=== PATIENT | male | born 1950 | race Caucasian/White ===

== ENCOUNTER 2016-07-03 08:52 | Outpatient (CLI) | payer MEDICAID, OTHER ==
[2015-09-18 21:54] VITALS: BP 121/79
== END 2016-07-03 08:53 ==
LOC: RT 08:52
PROVIDERS: ATTEND Nurse Practitioner Family
DX: R09.02 Hypoxemia (principal)
CPT/HCPCS: 94761

== ENCOUNTER 2017-05-05 18:16 | Emergency (ER) | payer MEDICARE, OTHER ==
[2017-05-05 18:42] VITALS: BP 124/80
[2017-05-05] MEDS ORDERED: methylPREDNISolone ACETATE 80 MG/ML VIAL IM ONE (19:25)
[2017-05-05] MEDS ORDERED: IPRATROPIUM/ALBUTEROL SULFATE 3 ML AMPUL.NEB NEB STA (19:25)
--- NOTE | 2017-05-05 19:38 | ED Physician Documentation ---
General Adult - HISTORIAN Historian: patient - HPI Stated Complaint: right ankle pain, cough Chief Complaint: General Adult Further Comments: yes (66 year old male patient presents with complaint of cough , wheezing and right ankle pain. Patient reports falling down 3 stairs this afternoon. C/O right lateral ankle pain, able to bear weight.) - ROS CONST: no problems EYES/ENT: none CVS/RESP: shortness of breath, cough GI/: none MS/SKIN/LYMPH: ankle swelling (left) NEURO/PSYCH: denies: headache, fainting, dizziness, tingling, numbness, difficulty walking, difficulty with speech, anxiety, depression, other - PAST HX Past History: COPD Other History: other (HLD, HTN) Allergies/Adverse Reactions: Allergies Allergy/AdvReac Type Severity Reaction Status Date / Time Penicillins Allergy Severe Throat Verified 05/05/17 18:44 Swelling Home Medications: Ambulatory Orders Medication Instructions Recorded Metoprolol Succinate [Toprol Xl] 50 mg PO DAILY 04/16/13 Aspirin EC [Ecotrin] 1 tab PO D 09/18/15 Atorvastatin Calcium [Lipitor] 1 tab PO D 09/18/15 Albuterol Sulfate [Proair HFA] 1 puff INH QID 05/05/17 Budesonide/Formoterol Fumarate 1 puff IH BID 05/05/17 [Symbicort 160-4.5 Mcg Inhaler] - SOCIAL HX Smoking History: cigarettes - FAMILY HX Family History: No - VITAL SIGNS Vital Signs: Vital Signs Temp Pulse Resp BP Pulse Ox 99.9 F H 112 H 21 124/80 96 05/05/17 18:39 05/05/17 18:39 05/05/17 18:39 05/05/17 18:39 05/05/17 18:39 - REVIEWED ASSESSMENTS Nursing Assessment Reviewed: Yes Vitals Reviewed: Yes Progress - Progress Progress: Duoneb given in ER, Sat 98% on RA; depo medrol IM given. ED Results Lab/Radiology - Radiology Radiology Impressions: Three views of the right ankle CLINICAL HISTORY: Twisting injury. Pain and swelling. FINDINGS: Examination of the right ankle in AP, lateral and oblique views fails to demonstrate evidence of fracture or dislocation. The ankle mortise is anatomic. Calcaneal spurs are seen on the lateral view. IMPRESSION: Calcaneal spurs. No fracture. 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 by: Jeremy Villa - Orders Orders: ED Orders Category Date Time Status RIGHT ANKLE [ANKLE 3 VIEWS OR MORE] [RAD] Stat Exams 05/05/17 Ordered INFLUENZA A&B Stat Lab 05/05/17 18:39 Ordered Ipratropium/Albuterol Sulfate [Duoneb] Med 05/05/17 19:25 Discontinued 3 ml NEB STAT STA methylPREDNISolone ACETATE [Depo-Medrol] Med 05/05/17 19:25 Discontinued 80 mg IM NOW ONE General Adult Physical Exam - PHYSICAL EXAM GENERAL APPEARANCE: mild distress EENT: eye inspection normal, CINDY RESPIRATORY: no resp distress, chest non-tender, wheezes (expiratory) CVS: reg rate & rhythm, heart sounds normal, equal pulses, no murmur, no gallop , PMI nml, no JVD, no friction rub, 24 ABDOMEN: soft, no organomegaly, normal bowel sounds, no abdominal bruit, no distension SKIN: normal color, warm/dry, NR, INT, PAL, DR EXTREMITIES: normal range of motion, no evidence of injury, no edema, tenderness (right ankle), other (right lateral ankle with moderate edema; no ecchymosis) NEURO: oriented X3, CN's nml as tested, motor nml, sensation nml, mood/affect nml Discharge Clincal Impression: COPD with exacerbation Referrals: Kalpana Shin, CHARLIEN [Primary Care Provider] - 3 Days Additional Instructions: clinical support associate your prescriptions and start them tomorrow. Increase your nebulizer use to every 2-4 hours as needed for cough and wheezing Ankle sprain: Rest Ice elevation Jimenez wrap as needed Condition: Stable Disposition: 01 HOME, SELF-CARE Decision to Admit: NO Decision Time: 19:37
--- NOTE | 2017-05-06 06:00 | Diagnostic Imaging Report ---
[facility] [address] [facility].[address] [address] Report Submission Date: May 05, 2017 7:18:34 PM SENIOR INFORMATION DEVELOPER Patient Study Name: CATHI WRAY Date: May 05, 2017 7:09:03 PM SENIOR INFORMATION DEVELOPER Modality Type: CR Gender: M Description: LOWER EXTREMITY : 52 Institution: [facility] Physician: MIGNON CORRAL (RANGE MANAGER) - ER Three views of the right ankle CLINICAL HISTORY: Twisting injury. Pain and swelling. FINDINGS: Examination of the right ankle in AP, lateral and oblique views fails to demonstrate evidence of fracture or dislocation. The ankle mortise is anatomic. Calcaneal spurs are seen on the lateral view. IMPRESSION: Calcaneal spurs. No fracture. Electronically signed on May 05, 2017 7:18:34 PM SENIOR INFORMATION DEVELOPER by: Jeremy CARDONA
== END 2017-05-05 19:45 | disposition home or self-care (01) ==
LOC: ED 18:16
DX: J44.1 Chronic obstructive pulmonary disease with (acute) exacerbation (principal); M25.571 Pain in right ankle and joints of right foot
CPT/HCPCS: 73610; 87400; 94640; 96372; 99283; J1040

== ENCOUNTER 2017-06-18 16:33 | Emergency (ER) | payer MEDICARE ==
--- NOTE | 2017-06-18 16:53 | ED Physician Documentation ---
Critical Care - HISTORIAN Historian: patient - HPI Chief Complaint: Chest Pain Additional Information: 7yo white male who developed some chest pain in the left anterior chest that lasted about 10 minutes about one week ago. Since that time has been having some chest discomfort that lasts for seconds. Today felt weak and lightheaded. Has been cough some, productive of some yellow phlegm, no cough. Has been having some SOB and wheezing. More SOB over the last day. No feet or leg swelling. Has a history of acid reflux. Has had [address] about 6 years ago[address] Last saw Dr Weir about 1 year ago. - PAST HX Allergies/Adverse Reactions: Allergies Allergy/AdvReac Type Severity Reaction Status Date / Time Penicillins Allergy Severe Throat Verified 05/05/17 18:44 Swelling Home Medications: Ambulatory Orders Medication Instructions Recorded Metoprolol Succinate [Toprol Xl] 50 mg PO DAILY 04/16/13 Aspirin EC [Ecotrin] 1 tab PO D 09/18/15 Atorvastatin Calcium [Lipitor] 1 tab PO D 09/18/15 Albuterol Sulfate [Proair HFA] 1 puff INH QID 05/05/17 Azithromycin [Zithromax] 250 mg PO DAILY #6 tablet 05/05/17 Benzonatate [Tessalon Perles] 200 mg PO TID PRN #30 capsule 05/05/17 Budesonide/Formoterol Fumarate 1 puff IH BID 05/05/17 [Symbicort 160-4.5 Mcg Inhaler] Prednisone 40 mg PO DAILY #16 tablet 05/05/17 - VITAL SIGNS Vital Signs: Vital Signs Temp Pulse Resp BP Pulse Ox 124/80 05/05/17 19:50 Discharge Referrals: Kalpana Shin, PRN [Primary Care Provider] - 2 Days
--- NOTE | 2017-06-18 16:56 | ED Physician Documentation ---
General Adult - HPI Chief Complaint: Chest Pain Additional Information: 66yo white male who developed some chest pain in the left anterior chest that lasted about 10 minutes about one week ago. Since that time has been having some chest discomfort that lasts for seconds. Today felt weak and lightheaded. Has been cough some, productive of some yellow phlegm, no cough. Has been having some SOB and wheezing. More SOB over the last day. No feet or leg swelling. Has a history of acid reflux. Has had [address] about 6 [address] Last saw Dr Weir about 1 year ago. Timing: still present, pain intermittent Severity: mild - ROS CONST: no problems. denies: fever, sweating, chills - PAST HX Past History: hypertension, other (CAD). denies: asthma, COPD Surgeries/Procedures: other (stints placed) Immunizations: referred to PCP - SOCIAL HX Smoking History: greater than 1 pack/day (1 ppd) Alcohol Use: none Drug Use: none - FAMILY HX Family History: Yes (CAD, CVA,) - VITAL SIGNS Vital Signs: Vital Signs Temp Pulse Resp BP Pulse Ox 124/80 05/05/17 19:50 - REVIEWED ASSESSMENTS Nursing Assessment Reviewed: Yes Vitals Reviewed: Yes <Ronnie Cunningham - Last Filed: 06/18/17 17:48> - VITAL SIGNS Vital Signs: Vital Signs Temp Pulse Resp BP Pulse Ox 98.3 F 62 20 161/80 94 06/18/17 16:34 06/18/17 18:57 06/18/17 16:34 06/18/17 16:34 06/18/17 18:57 <Sky Caraballo - Last Filed: 06/18/17 19:20> - PAST HX Allergies/Adverse Reactions: Allergies Allergy/AdvReac Type Severity Reaction Status Date / Time Penicillins Allergy Severe Throat Verified 06/18/17 17:00 Swelling Home Medications: Ambulatory Orders Medication Instructions Recorded Metoprolol Succinate [Toprol Xl] 50 mg PO DAILY 04/16/13 Aspirin EC [Ecotrin] 1 tab PO D 09/18/15 Atorvastatin Calcium [Lipitor] 1 tab PO D 09/18/15 Albuterol Sulfate [Proair HFA] 1 puff INH QID 05/05/17 Budesonide/Formoterol Fumarate 1 puff IH BID 05/05/17 [Symbicort 160-4.5 Mcg Inhaler] ED Results Lab/Radiology - Radiology Radiology Impressions: Examination: PA and lateral chest. History: PATIENT STATES CHEST PAIN. SMOKER OF 45 YEARS. (Hx) / CHEST PAIN ( DICOM Hx) / CHEST PAIN (Pt comments) Comparison exam: None provided. Findings: PA lateral chest demonstrate a normal cardiac and mediastinal silhouette. Mildly tortuous aorta. Elevated right hemidiaphragm. No focal infiltrate. No blunting of the costophrenic margins. Osseous structures are appropriate for age. Impression: No acute appearing pulmonary process. <Ronnie Cunningham - Last Filed: 06/18/17 17:48> - Lab Results Lab Results: Lab Results 06/18/17 06/18/17 06/18/17 17:05 17:05 17:05 WBC 5.40 K/ul K/ul (4.00-12.00) RBC 5.44 M/ul H M/ul (3.90-5.20) Hgb 16.2 g/dL g/dL (12.0-18.0) Hct 48.0 % % (37.0-53.0) MCV 88.3 fl fl (80.0-100.0) MCH 29.7 pg pg (28.0-34.0) MCHC 33.7 g/dL g/dL (30.0-36.0) RDW 13.5 % % (11.3-14.3) Plt Count 261 K/mm3 K/mm3 (130-400) Neut % (Auto) 60.0 % % (39.0-79.0) Lymph % (Auto) 26.0 % % (16.0-50.0) [place] % (Auto) 6.3 % % (0.0-11.0) Eos % (Auto) 3.9 % % (0.0-6.8) Baso % (Auto) 1.7 H (0.0-1.5) Neut # (Auto) 3.2 # k/uL # k/uL (1.4-7.7) Lymph # (Auto) 1.4 # k/uL # k/uL (0.6-4.0) [place] # (Auto) 0.3 # k/uL # k/uL (0.0-0.9) Eos # (Auto) 0.2 # k/uL # k/uL (0.0-0.6) Baso # (Auto) 0.1 # k/uL # k/uL (0.0-0.5) Reactive Lymphs % 2.1 % % (0.0-5.0) Reactive Lymphs # 0.1 # k/uL # k/uL (0.0-0.8) D-Dimer 728 ng/mL H ng/mL (6.0-682) Sodium 142 mmol/L mmol/L (136-145) Potassium 3.8 mmol/L mmol/L (3.5-5.1) Chloride 100 mmol/L mmol/L (98-107) Carbon Dioxide 27 mmol/L mmol/L (22-30) BUN 12 mg/dL mg/dL (9-20) Creatinine 0.90 mg/dL mg/dL (0.66-1.25) Estimated Creat Clear 102 Est GFR ( Amer) > 60 (60 - ) Est GFR (Non-Af Amer) > 60 (60 - ) Glucose 106 mg/dL mg/dL (74-106) Calcium 9.0 mg/dL mg/dL (8.4-10.2) Total Bilirubin 0.7 mg/dL mg/dL (0.2-1.3) AST 20 U/L U/L (15-46) ALT 28 U/L U/L (13-69) Alkaline Phosphatase 71 U/L U/L (38-126) Creatine Kinase 85 U/L U/L (55-170) Troponin I < 0.03 ng/mL L ng/mL (0.03-0.06) Total Protein 7.0 g/dL g/dL (6.3-8.2) Albumin 4.1 g/dL g/dL (3.5-5.0) - Radiology Radiology Impressions: Ct shows no PE, possible chronic bronchitis - Orders Orders: ED Orders Category Date Time Status Continuous EKG monitoring Q30M Care 06/18/17 16:59 Active Continuous Pulse Oximetry Q30M Care 06/18/17 16:[address] IV Lock 1T Care 06/18/17 16:59 Active CHEST 2VIEW [RAD] Routine Exams 06/18/[address] PE CHEST Stat Exams 06/18/17 Ordered CBC/PLATELET/DIFF Routine Lab 06/18/17 17:05 Completed CMP Routine Lab 06/18/17 17:05 Completed CREATINE KINASE Routine Lab 06/18/17 17:05 Completed D DIMER Routine Lab 06/18/17 17:05 Completed TROPONIN I (cTnI) Stat Lab 06/18/17 17:05 Completed Ipratropium/Albuterol Sulfate [Duoneb] Med 06/18/17 17:53 Discontinued 3 ml NEB .STK-MED ONE Ipratropium/Albuterol Sulfate [Duoneb] Med 06/18/17 17:55 Discontinued 3 ml NEB NOW ONE EKG WITH COMPARISON Stat Ther 06/18/17 16:59 Ordered <Sky Caraballo - Last Filed: 06/18/17 19:20> General Adult Physical Exam - PHYSICAL EXAM GENERAL APPEARANCE: mild distress EENT: no signs of dehydration. No: dry mucous membranes NECK: normal inspection, thyroid normal, supple RESPIRATORY: no resp distress, chest non-tender, wheezes (mild bilateral), rhonchi (left base) CVS: reg rate & rhythm, heart sounds normal, equal pulses, no murmur ABDOMEN: soft, no organomegaly, normal bowel sounds, no distension, non-tender BACK: normal inspection, no CVA tenderness SKIN: warm/dry, normal color NEURO: oriented X3, mood/affect nml, cognition normal <Ronnie Cunningham - Last Filed: 06/18/17 17:48> Discharge <Ronnie Cunningham - Last Filed: 06/18/17 17:48> Decision to Admit: NO Date of Decison to Admit: 06/18/17 Decision Time: 19:19 <Sky Caraballo - Last Filed: 06/18/17 19:20> Clincal Impression: Chronic bronchitis with acute exacerbation, D-dimer, elevated Dyspnea Qualifiers: Dyspnea type: dyspnea on exertion Qualified Code(s): R06.09 - Other forms of dyspnea Referrals: Kalpana Shin, PRN [Primary Care Provider] - 2 Days Condition: Stable Disposition: 01 HOME, SELF-CARE
[2017-06-18 17:10] LABS: BASOPHILS % 1.7 (0.0-1.5); EOSINOPHILS % 3.9 % (0.0-6.8); MEAN CORPUSCULAR HEMOGLOBIN 29.7 pg (28.0-34.0); MEAN CORPUSCULAR VOLUME 88.3 fl (80.0-100.0); MONOCYTES % 6.3 % (0.0-11.0); NEUTROPHILS # 3.2 # k/uL (1.4-7.7)
[2017-06-18 17:26] LABS: eGFR (African) > 60; eGFR (Non-African) > 60
[2017-06-18] MEDS ORDERED: IPRATROPIUM/ALBUTEROL SULFATE 3 ML AMPUL.NEB NEB ONE ×2 (17:53→17:55)
--- NOTE | 2017-06-18 19:15 | Diagnostic Imaging Report ---
[facility] [address] [facility].[address] [address] Report Submission Date: Jun 18, 2017 7:05:46 PM MANAGER ENROLLMENT Patient Study Name: CATHI WRAY Date: Jun 18, 2017 6:42:02 PM MANAGER ENROLLMENT Modality Type: CT\SR Gender: M Description: CT ANGIOGRAPHY CHEST 7 : 52 Institution: [facility] Physician: GHISLAINE ROLLINS Computed tomography of the chest with contrast History: Chest pain, shortness of breath, elevated d-dimer, smoker Findings: Transverse chest sections are obtained after 90 mL intravenous omnipaque 300 from which multiplanar reformatted images are obtained. Pulmonary arteries are patent and normal in caliber without acute pulmonary embolism. Upper abdomen sections reveal gallbladder contraction and a right renal cyst. Minimal coronary artery calcification is present. Scattered calcified granulomas are noted. A 6 mm posterior right upper lobe peripheral pulmonary nodule is observed. There is no infiltrate or pleural effusion. Bronchial wall thickening is present at the lung bases. Impression: 1. No pulmonary embolism. 2. Emphysema and bilateral bronchitis. 3. 6 mm posterior right upper lobe nodule. Recommend noncontrast chest CT followup in 6 months. Electronically signed on Jun 18, 2017 7:05:46 PM MANAGER ENROLLMENT by: Ankush CARDONA
--- NOTE | 2017-06-18 19:16 | Diagnostic Imaging Report ---
[facility] [address] [facility].[address] [address] Report Submission Date: Jun 18, 2017 5:26:40 PM TABLEAU REPORT DEVELOPER Patient Study Name: CATHI WRAY Date: Jun 18, 2017 5:05:16 PM TABLEAU REPORT DEVELOPER Modality Type: CR Gender: M Description: CHEST : 52 Institution: [facility] Physician: GHISLAINE ROLLINS Examination: PA and lateral chest. History: PATIENT STATES CHEST PAIN. SMOKER OF 45 YEARS. (Hx) / CHEST PAIN ( DICOM Hx) / CHEST PAIN (Pt comments) Comparison exam: None provided. Findings: PA lateral chest demonstrate a normal cardiac and mediastinal silhouette. Mildly tortuous aorta. Elevated right hemidiaphragm. No focal infiltrate. No blunting of the costophrenic margins. Osseous structures are appropriate for age. Impression: No acute appearing pulmonary process. Electronically signed on Jun 18, 2017 5:26:40 PM TABLEAU REPORT DEVELOPER by: Gualberto CARDONA
[2017-06-18] MEDS ORDERED: methylPREDNISolone SOD SUCC 125 MG/2 ML VIAL ONE (19:26)
[2017-06-18 19:41] VITALS: BP 132/81
[2017-06-19] MEDS ORDERED: methylPREDNISolone SOD SUCC 125 MG/2 ML VIAL IV ONE (19:18)
== END 2017-06-18 19:35 | disposition home or self-care (01) ==
LOC: ED 16:33 → EDSTATUS 16:34 → ED 19:35
DX: J42 Unspecified chronic bronchitis (principal); R07.9 Chest pain, unspecified; F17.210 Nicotine dependence, cigarettes, uncomplicated; I10 Essential (primary) hypertension; I25.10 Atherosclerotic heart disease of native coronary artery without angina pectoris
CPT/HCPCS: 71046; 71275; 80053; 82550; 84484; 85025; 85379; J2930; 94640; 96374; 99283; Q9967; S1016

== ENCOUNTER 2017-07-11 17:55 | Inpatient (IN) | payer MEDICARE ==
[2017-07-11] MEDS ORDERED: IPRATROPIUM/ALBUTEROL SULFATE 3 ML AMPUL.NEB NEB STA (18:09)
[2017-07-11] MEDS ORDERED: methylPREDNISolone SOD SUCC 125 MG/2 ML VIAL IVP ONE (18:15)
[2017-07-11 18:37] LABS: BASOPHILS % 0.4 (0.0-1.5); EOSINOPHILS % 2.5 % (0.0-6.8); MEAN CORPUSCULAR HEMOGLOBIN 30.6 pg (28.0-34.0); MEAN CORPUSCULAR VOLUME 88.9 fl (80.0-100.0); MONOCYTES % 3.7 % (0.0-11.0); NEUTROPHILS # 7.7 # k/uL (1.4-7.7)
[2017-07-11 18:56] LABS: eGFR (African) > 60; eGFR (Non-African) > 60
[2017-07-11] MEDS ORDERED: CLINDAMYCIN PHOSPHATE 600 MG in 0.9 % SODIUM CHLORIDE 50 ML IV ONE (19:11)
[2017-07-11] MEDS ORDERED: ALBUTEROL SULFATE 2.5 MG/3 ML AMPUL.NEB NEB ONE ×2 (19:15→21:32)
[2017-07-11] MEDS ORDERED: 0.9 % SODIUM CHLORIDE 1,000 ML IV ONE (19:16)
--- NOTE | 2017-07-11 19:20 | ED Physician Documentation ---
Dyspnea - HISTORIAN Historian: patient - HPI Stated Complaint: SOA Chief Complaint: Wheezing Onset: days ago Duration: continues in ED, worse Initiating Event: aspiration (last week) Severity: severe Exacerbated By: coughing Associated Symptoms: chills Further Comments: yes (66 year old male patient presents with wheezing and SOB. Patient states he has coughed so hard he vomited multiple times. 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.) - ROS CONST: no problems EYES/ENT: none GI/: vomiting (related to coughing) NEURO/PSYCH: denies: headache MS/SKIN/LYMPH: none - PAST HX Lung Disease: COPD Cardiac Disease: other (HLD) PE Risk Factors: hypertension Allergies/Adverse Reactions: Allergies Allergy/AdvReac Type Severity Reaction Status Date / Time Penicillins Allergy Severe Throat Verified 07/11/17 18:18 Swelling Home Medications: Ambulatory Orders Medication Instructions Recorded Metoprolol Succinate [Toprol Xl] 50 mg PO DAILY 04/16/13 Aspirin EC [Ecotrin] 1 tab PO D 09/18/15 Atorvastatin Calcium [Lipitor] 1 tab PO D 09/18/15 Albuterol Sulfate [Proair HFA] 1 puff INH QID 05/05/17 Budesonide/Formoterol Fumarate 1 puff IH BID 05/05/17 [Symbicort 160-4.5 Mcg Inhaler] - SOCIAL HX Smoking History: cigarettes - FAMILY HX Family History: denies: none - VITAL SIGNS Vital Signs: Vital Signs Temp Pulse Resp BP Pulse Ox 98.0 F 85 17 126/76 94 07/11/17 17:55 07/11/17 19:09 07/11/17 17:55 07/11/17 17:55 07/11/17 19:09 - REVIEWED ASSESSMENTS Nursing Assessment Reviewed: Yes Vitals Reviewed: Yes Progress - Progress Progress: 1900 Continued wheezing after duoneb and solumedrol. Chest Xray shows RUL pneumonia. Patient reports possible aspiration. Will treat with clindamycin IV. Discussed treatment options with patient recommended admission for IV antibiotics, steroids and nebulizer treatments. Patient prefers admission, does not want transfer at this time. Call to Dr Cunningham; patient accepted for admission. ED Results Lab/Radiology - Lab Results Lab Results: Lab Results 07/11/17 07/11/17 18:20 18:20 WBC 9.70 K/ul K/ul (4.00-12.00) RBC 5.17 M/ul M/ul (3.90-5.20) Hgb 15.8 g/dL g/dL (12.0-18.0) Hct 46.0 % % (37.0-53.0) MCV 88.9 fl fl (80.0-100.0) MCH 30.6 pg pg (28.0-34.0) MCHC 34.4 g/dL g/dL (30.0-36.0) RDW 13.3 % % (11.3-14.3) Plt Count 277 K/mm3 K/mm3 (130-400) Neut % (Auto) 79.3 % H % (39.0-79.0) Lymph % (Auto) 12.8 % L % (16.0-50.0) [place] % (Auto) 3.7 % % (0.0-11.0) Eos % (Auto) 2.5 % % (0.0-6.8) Baso % (Auto) 0.4 (0.0-1.5) Neut # (Auto) 7.7 # k/uL # k/uL (1.4-7.7) Lymph # (Auto) 1.2 # k/uL # k/uL (0.6-4.0) [place] # (Auto) 0.4 # k/uL # k/uL (0.0-0.9) Eos # (Auto) 0.2 # k/uL # k/uL (0.0-0.6) Baso # (Auto) 0.0 # k/uL # k/uL (0.0-0.5) Reactive Lymphs % 1.4 % % (0.0-5.0) Reactive Lymphs # 0.1 # k/uL # k/uL (0.0-0.8) Sodium 139 mmol/L mmol/L (136-145) Potassium 3.9 mmol/L mmol/L (3.5-5.1) Chloride 98 mmol/L mmol/L (98-107) Carbon Dioxide 28 mmol/L mmol/L (22-30) BUN 11 mg/dL mg/dL (9-20) Creatinine 0.90 mg/dL mg/dL (0.66-1.25) Estimated Creat Clear 102 Est GFR ( Amer) > 60 (60 - ) Est GFR (Non-Af Amer) > 60 (60 - ) Glucose 141 mg/dL H mg/dL (74-106) Calcium 9.2 mg/dL mg/dL (8.4-10.2) Total Bilirubin 1.0 mg/dL mg/dL (0.2-1.3) AST 26 U/L U/L (15-46) ALT 32 U/L U/L (13-69) Alkaline Phosphatase 87 U/L U/L (38-126) Total Protein 7.2 g/dL g/dL (6.3-8.2) Albumin 4.2 g/dL g/dL (3.5-5.0) - Radiology Radiology Impressions: Chest 2 views History: Cough and shortness of breath. Emphysema. Smoker. Findings: Right upper lobe perihilar infiltrate and bronchial wall thickening are observed. Minimal lingular atelectasis or scar and left pericardial fat pad are unchanged since the CT obtained 1 month ago. Heart size is normal. Lungs are hyperinflated. There is no significant pleural effusion. Impression: 1. Acute right upper lobe pneumonia. This is new since the prior CT scan. 2. Emphysema. 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 by: Ankush Singh - Orders Orders: ED Orders Category Date Time Status Continuous EKG monitoring Q30M Care 07/11/17 18:09 Active Continuous Pulse Oximetry Q30M Care 07/11/17 18:[address] IV Lock 1T Care 07/11/17 18:09 Active CHEST 2VIEW [RAD] Stat Exams 07/11/17 18:09 Taken BLOOD CULTURE Stat Lab 07/11/17 Ordered CBC/PLATELET/DIFF Stat Lab 07/11/17 18:20 Completed CMP Stat Lab 07/11/17 18:20 Completed LACTATE Stat Lab 07/11/17 Ordered SPUTUM CULTURE Stat Lab 07/11/17 Ordered 0.9 % Sodium Chloride [Normal Saline] 1,000 ml Med 07/11/17 19:16 Discontinued IV NOW Albuterol Sulfate [Ventolin] Med 07/11/17 19:15 Discontinued 2.5 mg NEB NOW ONE Clindamycin Phosphate [Cleocin] 600 mg Med 07/11/17 19:11 Discontinued 0.9 % Sodium Chloride [Sodium Chloride] 50 ml IV NOW Ipratropium/Albuterol Sulfate [Duoneb] Med 07/11/17 18:09 Discontinued 3 ml NEB STAT STA methylPREDNISolone SOD SUCC [Solu-MEDROL] Med 07/11/17 18:15 Discontinued 125 mg IVP NOW ONE Oxygen Daily Oxygen 07/11/17 19:15 Ordered Dyspnea Physical Exam - EXAM General Appearance: moderate distress EENT: eye inspection normal, CINDY Respiratory: no pain on inspiration, respiratory distress (mild RR 32 on arrival ), decreased air movement (bases), wheezes, other (course throughout) CVS: reg. rate & rhythm, no murmur, no gallop, no friction rub, pulses full, pulses equal Abdomen: non-tender, no organomegaly, no distention, no ascites Skin: color nml, no rash, warm, nml palp., dry Extremities: non-tender, normal range of motion, no evidence of injury, no edema , J, AOC DIRECTOR COMBAT OPERATIONS OFFICER Neuro/Psych: oriented x3, CN's nml as tested, motor nml, sensation nml, mood/ affect nml Discharge Clincal Impression: COPD with exacerbation, Wheezing Pneumonia Qualifiers: Pneumonia type: aspiration pneumonia Aspiration pneumonia type: due to vomit Laterality: right Lung location: upper lobe of lung Qualified Code(s): J69.0 - Pneumonitis due to inhalation of food and vomit Dyspnea Qualifiers: Dyspnea type: dyspnea on exertion Qualified Code(s): R06.09 - Other forms of dyspnea Condition: Fair Disposition: ADMITTED INPATIENT Decision to Admit: NO Decision Time: 19:31
[2017-07-11] MEDS ORDERED: CLINDAMYCIN PHOSPHATE 300 MG/2 ML VIAL ONE (19:24)
[2017-07-11] MEDS ORDERED: 0.9 % SODIUM CHLORIDE 100 ML IV ONE (19:25)
--- NOTE | 2017-07-11 19:32 | Diagnostic Imaging Report ---
MIGNON HAYWARD (GREENSKEEPER) - ER [facility] [address] [facility].[address] [address] Report Submission Date: Jul 11, 2017 6:58:13 PM OSTEOPATHY DOCTOR Patient Study Name: CATHI WRAY Date: Jul 11, 2017 6:42:01 PM OSTEOPATHY DOCTOR Modality Type: DX Gender: M Description: CHEST : 52 Institution: [facility] Physician: MIGNON HAYWARD (ROS) - ER Chest 2 views History: Cough and shortness of breath. Emphysema. Smoker. Findings: Right upper lobe perihilar infiltrate and bronchial wall thickening are observed. Minimal lingular atelectasis or scar and left pericardial fat pad are unchanged since the CT obtained 1 month ago. Heart size is normal. Lungs are hyperinflated. There is no significant pleural effusion. Impression: 1. Acute right upper lobe pneumonia. This is new since the prior CT scan. 2. Emphysema. Electronically signed on Jul 11, 2017 6:58:13 PM OSTEOPATHY DOCTOR by: Ankush CARDONA
[2017-07-11] MEDS ORDERED: ALBUTEROL SULFATE 2.5 MG/3 ML AMPUL.NEB NEB PRN (22:06)
[2017-07-11] MEDS ORDERED: GUAIFENESIN/CODEINE 10 ML S/F LIQUID DOSE CUP PO PRN (22:11)
[2017-07-11] MEDS: 0.9 % SODIUM CHLORIDE 1,000 ML IV SCH (22:30)
[2017-07-12 00:17] VITALS: BMI 27.5
[2017-07-12] MEDS: METOPROLOL SUCCINATE 50 MG TAB.ER.24H PO SCH ×2 (00:52→09:19)
[2017-07-12] MEDS: IPRATROPIUM/ALBUTEROL SULFATE 3 ML AMPUL.NEB NEB SCH ×4 (00:52→19:49)
[2017-07-12] MEDS: 0.9 % SODIUM CHLORIDE 1,000 ML IV SCH ×4 (02:29→22:10)
[2017-07-12] MEDS ORDERED: CLINDAMYCIN PHOSPHATE 300 MG/2 ML VIAL ONE ×2 (02:37→12:38)
[2017-07-12] MEDS ORDERED: 0.9 % SODIUM CHLORIDE 100 ML IV ONE (02:45)
[2017-07-12] MEDS: CLINDAMYCIN PHOSPHATE 600 MG in 0.9 % SODIUM CHLORIDE 100 ML IV SCH ×3 (02:59→16:48)
--- NOTE | 2017-07-12 08:15 | History and Physical Report ---
History of Present Illnes - History of Present Illness Reason for Visit: Dyspnea History of Present Illness: 66yo white male who has a history of COPD. Started to have some sinsu pressure and drainage. It moved into his lungs and became SOB/DUBON. Has been wheezing, cough productive of clear yellow phlegm, no blood noted. No chest pain. Patient was seen in the ED and noted to be hypoxic and felt to be having an exacerbation of pneumonia and admitted for further care. - Past Medical History Cardiac: HTN, Hyperlipidemia, Other (sinus tachycardia) Pulmonary: COPD, Sleep Apnea (obstructive) - Past Surgical History Past Surgical History: Other (cardiac stenting of 2 vessels 2015) - Past Social History Smoke: 1 pack per day Occupation: disabled Alcohol: None Drugs: None Lives: With Family Domestic Violence: Negative - Health Maintenance Health Maintenance: Cholesterol, Influenza Vaccine, Pneumococcal Vaccine (2016) Influenza Vaccine: Current for this Influenza Season Pneumonia Vaccine: Yes Resuscitation Status: Resusciation Status Resuscitation Status Full Code Review of Systems - Review of Systems Constitutional: Fever, Chills. negative: Sweats, Weakness Eyes: negative: vision change ENT: Nose Discharge. negative: Ear Pain, Ear Discharge, Nose Pain, Mouth Swelling, Throat Pain Respiratory: Cough, Shortness of Breath, Hemoptysis, SOB with Excertion, Pleuritic Pain. negative: Sputum Cardiovascular: Chest Pain, Palpitations Gastrointestinal: negative: Nausea, Vomiting, Abdominal Pain Genitourinary: negative: Dysuria, Frequency, Incontinence, Hematuria Musculoskeletal: negative: Neck Pain, Back Pain, Leg Pain Skin: negative: Rash Neurological: negative: Weakness, Numbness, Confusion, Seizures - Medications/Allergies Allergies/Adverse Reactions: Allergies Allergy/AdvReac Type Severity Reaction Status Date / Time Penicillins Allergy Severe Throat Verified 07/11/17 18:18 Swelling Current Inpatient Medications: Current Inpatient Medications Albuterol Sulfate (Ventolin) 2.5 mg NEB Q4 PRN PRN Reason: Wheezing Albuterol/Ipratropium (Duoneb) 3 ml NEB Q6 JANIA Last Admin: 07/12/17 06:03 Dose: 3 ml Aspirin (Ecotrin) mg PO D JANIA Atorvastatin Calcium (Lipitor) 80 mg PO HS [facility] Guaifenesin/Codeine Phosphate (Robitussin Ac) 10 ml PO Q6H PRN PRN Reason: Cough Clindamycin Phosphate 600 mg/ (Sodium Chloride) 100 mls @ 100 mls/hr IV Q6 [facility] Last Admin: 07/12/17 05:31 Dose: 100 mls/hr Sodium Chloride (Normal Saline) 1,000 mls @ 100 mls/hr IV Q10H [facility] Last Admin: 07/12/17 02:29 Dose: 100 mls/hr Methylprednisolone Sodium Succinate (Solu-Medrol) 62.5 mg IVP BID [facility] Metoprolol Succinate (Toprol Xl) 50 mg PO DAILY [facility] Last Admin: 07/12/17 00:52 Dose: 50 mg Exam - Exam Vital Signs: Vital Signs (72 hours) 07/11/17 07/11/17 07/11/17 21:30 22:00 22:30 Temperature Pulse Rate 80 77 94 H Pulse Rate [ Left Pulse ox] Pulse Rate [ Right Pulse ox] Respiratory Rate Blood Pressure [Left Arm] Blood Pressure [Right Arm] O2 Sat by Pulse 95 95 100 Oximetry 07/11/17 07/11/17 07/12/17 23:00 23:49 02:00 Temperature 98.0 F 97.3 F L 96.5 F L Pulse Rate 59 L Pulse Rate [ 78 60 Left Pulse ox] Pulse Rate [ 88 Right Pulse ox] Respiratory 16 18 18 Rate Blood Pressure 132/78 113/68 [Left Arm] Blood Pressure 126/73 [Right Arm] O2 Sat by Pulse 100 94 93 Oximetry 07/12/17 06:00 Temperature 97.8 F Pulse Rate 72 Pulse Rate [ Left Pulse ox] Pulse Rate [ 82 Right Pulse ox] Respiratory 20 Rate Blood Pressure 106/60 [Left Arm] Blood Pressure [Right Arm] O2 Sat by Pulse 94 Oximetry General: Alert, Oriented to Person, Oriented to Place, Oriented to Time, Cooperative HEENT: Atraumatic, PERRLA, EOMI, Mouth Mucous membr. moist/[place], Nose Mucous membr. moist/[place], Dentition Normal, Hearing Grossly Normal Neck: Normal Range of Motion Carotids: WNL Thyroid: WNL Lungs: Clear to auscultation, Normal air movement, Speaks full Sentences Cardiovascular: Regular rate, Normal S1, Normal S2, No murmurs Abdomen: Normal bowel sounds, Soft, No tenderness, No hepatospenomegaly, No masses Integumentary: Normal, [place], Warm, Dry Extremities: No clubbing, No cyanosis, No edema, Normal pulses, No tenderness/ swelling Neurological: Normal gait, Normal speech, Strength Equal Bilat, Normal tone, Sensation intact, Cranial nerves 3-12 NL, Reflexes 2+ Psych/Mental Status: Mental status NL, Mood NL, Appropriate Affect, Intact Judgment Assessment/Plan - Assessment/Plan (1) COPD (chronic obstructive pulmonary disease) Status: Acute Current Visit: Yes Qualifiers: COPD type: COPD with acute lower respiratory infection Qualified Code(s): J44.0 - Chronic obstructive pulmonary disease with acute lower respiratory infection (2) Hypertension Status: Chronic Current Visit: Yes Qualifiers: Hypertension type: essential hypertension Qualified Code(s): I10 - Essential (primary) hypertension Narrative Support Text: continue with home medications and I will monitor it. (3) Pneumonia Status: Acute Current Visit: Yes Qualifiers: Pneumonia type: aspiration pneumonia Aspiration pneumonia type: due to vomit Laterality: right Lung location: upper lobe of lung Qualified Code(s ): J69.0 - Pneumonitis due to inhalation of food and vomit VTE Assessment - RISK FACTOR SCORE VTE RISK FACTOR SCORES: AGE OVER 60 YEARS, ACUTE INFECTION OTHER THEN SEPSIS, ANTICIPATED BED CONFINEMENT OR IMMOBILIZATION > 24 HOURS - RISK VTE HIGH RISK: SCORE OF 3-4 (RISK PROXIMAL DVT 4-8%) PROPHYLAXIS NEEDED
[2017-07-12] MEDS ORDERED: ASPIRIN EC 81 MG TABLET.DR PO SCH (09:00)
[2017-07-12] MEDS: methylPREDNISolone SOD SUCC 125 MG/2 ML VIAL IVP SCH ×2 (09:38→21:20)
[2017-07-12] MEDS ORDERED: ATORVASTATIN CALCIUM 80 MG TABLET PO ONE (12:37)
[2017-07-12] MEDS: CLINDAMYCIN HCL 150 MG CAPSULE PO SCH (17:55)
[2017-07-12] MEDS ORDERED: ATORVASTATIN CALCIUM 80 MG TABLET PO SCH (21:00)
[2017-07-12] MEDS ORDERED: FAMOTIDINE 20 MG TABLET PO ONE (21:54)
[2017-07-12] MEDS ORDERED: FAMOTIDINE 20 MG TABLET ONE (22:06)
[2017-07-12] MEDS: FAMOTIDINE 20 MG TABLET PO SCH (22:12)
[2017-07-13] MEDS: CLINDAMYCIN HCL 150 MG CAPSULE PO SCH ×2 (00:24→05:30)
[2017-07-13] MEDS: IPRATROPIUM/ALBUTEROL SULFATE 3 ML AMPUL.NEB NEB SCH ×2 (00:24→05:31)
[2017-07-13] MEDS ORDERED: FAMOTIDINE 20 MG TABLET ONE (05:34)
[2017-07-13] MEDS: FAMOTIDINE 20 MG TABLET PO SCH (06:03)
[2017-07-13] MEDS: METOPROLOL SUCCINATE 50 MG TAB.ER.24H PO SCH (08:16)
[2017-07-13] MEDS: methylPREDNISolone SOD SUCC 125 MG/2 ML VIAL IVP SCH (08:16)
[2017-07-13] MEDS: 0.9 % SODIUM CHLORIDE 1,000 ML IV SCH (08:21)
--- NOTE | 2017-07-13 08:39 | Discharge Summary ---
Discharge Summary - Discharge Sumary History of Present Illness: 66yo white male who has a history of COPD. Started to have some sinsu pressure and drainage. It moved into his lungs and became SOB/DUBON. Has been wheezing, cough productive of clear yellow phlegm, no blood noted. No chest pain. Patient was seen in the ED and noted to be hypoxic, note to have RUL inflitrate and felt to be having an exacerbation of COPD and was admitted for further care. Home Medications: Ambulatory Orders Medication Instructions Recorded Metoprolol Succinate [Toprol XL] 50 mg PO DAILY 04/16/13 Aspirin EC [Ecotrin] 1 tab PO D 09/18/15 Atorvastatin Calcium [Lipitor] 1 tab PO D 09/18/15 Albuterol Sulfate [Proair HFA] 1 puff INH QID 05/05/17 Budesonide/Formoterol Fumarate 1 puff IH BID 05/05/17 [Symbicort 160-4.5 Mcg Inhaler] Albuterol Sulfate [Ventolin HFN] 2.5 mg NEB Q4 PRN ampul.neb 07/13/17 Clindamycin HCl [Cleocin] 300 mg PO TID #90 capsule 07/13/17 Guaifenesin/Codeine Phosphate 10 ml PO Q6H PRN liquid 07/13/17 [Robitussin AC] Consultations this Visit: None Procedures this Visit: None Allergies/Adverse Reactions: Allergies Allergy/AdvReac Type Severity Reaction Status Date / Time Penicillins Allergy Severe Throat Verified 07/11/17 18:18 Swelling Patient Problems: Current Active Problems Problem Status Onset COPD (chronic obstructive pulmonary disease) Acute COPD with exacerbation Acute Dyspnea Acute History of tachycardia Acute Pneumonia Acute Wheezing Acute Hypertension Chronic Discharge Summary: Patient was admitted for right upper lobe pneumonia. It was felt that the patient may have aspirated. Patient was started on 3 mg IV high flow nebulization treatments, and steroid therapy. Patient was maintain on supplemental oxygen to keep SaO2 greater than 90%. Patient reading did improve. Patient at the time to discharge was able to maintain SaO2 92% on room air. It was felt that the patient could be was further at home was subsequently discharged in stable condition. - Final Diagnosis (1) Pneumonia Problems: RUL, improved with IV clindamycin, steroids and neb treatments. (2) COPD (chronic obstructive pulmonary disease) Problems: stable (3) Hypertension Problems: stable on home meds (4) History of tachycardia Problems: stable
[2017-07-13] MEDS ORDERED: ASPIRIN EC 81 MG TABLET.DR PO SCH (09:00)
[2017-07-13 09:59] VITALS: BP 130/74
== END 2017-07-13 09:45 | disposition home or self-care (01) | DRG 190 ==
LOC: ED 17:55 → UNDOADMIN 21:06 → SOUTH 21:06
PROVIDERS: ADMIT Family Medicine; ATTEND Family Medicine
DX: J44.1 Chronic obstructive pulmonary disease with (acute) exacerbation (principal); J69.0 Pneumonitis due to inhalation of food and vomit; I10 Essential (primary) hypertension; E78.5 Hyperlipidemia, unspecified; R00.0 Tachycardia, unspecified; G47.33 Obstructive sleep apnea (adult) (pediatric); F17.210 Nicotine dependence, cigarettes, uncomplicated
CPT/HCPCS: 71046; 80053; 83605; 85025; 87040; 87400; A9270; J2930; J3490; J7030; 94640; 96365; 96375; 99222; 99238; 99284; S1016

== ENCOUNTER 2017-07-16 12:34 | Outpatient (CLI) | payer MEDICARE | END 2017-07-16 12:50 | LOC: CARD 12:34 | PROVIDERS: ATTEND Internal Medicine Cardiovascular Disease | DX: I25.10 Atherosclerotic heart disease of native coronary artery without angina pectoris (principal); E78.5 Hyperlipidemia, unspecified; J44.9 Chronic obstructive pulmonary disease, unspecified; Z72.0 Tobacco use; G47.30 Sleep apnea, unspecified | CPT/HCPCS: G0463 ==

== ENCOUNTER 2019-04-19 21:18 | Emergency (ER) | payer MEDICARE, OTHER ==
--- NOTE | 2019-04-19 21:34 | ED Physician Documentation ---
General Adult - HISTORIAN Historian: patient - HPI Stated Complaint: cough Chief Complaint: General Adult Onset: days ago Timing: still present Severity: moderate Further Comments: yes (Pt is a 68 yo male with hx COPD who c/o cough, wheezing x 3 days. Pt has had no chest pain, n/v. No fever.) - ROS CONST: no problems CVS/RESP: shortness of breath, cough, other (wheezing). denies: chest pain GI/: none MS/SKIN/LYMPH: none - PAST HX Past History: COPD, hypertension, other (DM, HLD) Allergies/Adverse Reactions: Allergies Allergy/AdvReac Type Severity Reaction Status Date / Time Penicillins Allergy Severe Throat Verified 07/11/17 18:18 Swelling Home Medications: Ambulatory Orders Medication Instructions Recorded Albuterol Sulfate [Albuterol 8.5 mg PO QID 04/19/19 Sulfate Hfa] Albuterol Sulfate [Proair HFA] 8.5 mg PO QID 04/19/19 Aspirin [Aspir-Low] 81 mg PO DAILY 04/19/19 Atorvastatin Calcium 80 mg PO DAILY 04/19/19 Budesonide/Formoterol Fumarate 10.2 gm PO BID 04/19/19 [Symbicort 160-4.5 Mcg Inhaler] Lisinopril 5 mg PO DAILY 04/19/19 Metformin HCl 500 mg PO BID 04/19/19 Tamsulosin HCl 0.4 mg PO DAILY 04/19/19 - SOCIAL HX Smoking History: cigarettes - FAMILY HX Family History: No - VITAL SIGNS Vital Signs: Vital Signs Temp Pulse Resp BP Pulse Ox 120/76 03/05/18 20:48 - REVIEWED ASSESSMENTS Nursing Assessment Reviewed: Yes Vitals Reviewed: Yes Progress - Progress Progress: Duoneb HFN Pulmicort HFN CXR: neg Azithromycin 500 mg po in ER. Prednisone 50 mg po in ER. Robitussin AC 10 ml in ER. Rx Azithromycin 250 mg. Take one by mouth once daily for 5 days. Rx Prednisone 50 mg. Take one by mouth once daily for 5 days. Rx Robitussin AC (with codeine). Take 10 ml (two teaspoons) by mouth every 6 hours as needed for cough. May cause drowsiness. General Adult Physical Exam - PHYSICAL EXAM GENERAL APPEARANCE: mild distress EENT: pharynx normal NECK: normal inspection, supple RESPIRATORY: wheezes CVS: reg rate & rhythm, heart sounds normal ABDOMEN: soft, no organomegaly, normal bowel sounds BACK: normal inspection SKIN: warm/dry, normal color EXTREMITIES: non-tender, normal range of motion, no evidence of injury, no edema NEURO: oriented X3, motor nml, sensation nml Discharge Clincal Impression: COPD exacerbation, cough, bronchitis Referrals: Kalpana Shin, PRN [Primary Care Provider] - Condition: Stable Disposition: 01 HOME, SELF-CARE Decision to Admit: NO Decision Time: 22:42
[2019-04-19] MEDS ORDERED: IPRATROPIUM/ALBUTEROL SULFATE 3 ML AMPUL.NEB NEB ONE (21:37)
[2019-04-19] MEDS ORDERED: BUDESONIDE 0.5MG/2ML AMPUL.NEB NEB ONE (21:46)
[2019-04-19] MEDS ORDERED: BUDESONIDE 0.5MG/2ML AMPUL.NEB NEB SCH (22:00)
--- NOTE | 2019-04-19 22:24 | Diagnostic Imaging Report ---
PATIENT MR#: [id number] PATIENT PATIENT NAME: CATHI WRAY DATE OF : 1950 REFERRING PHYSICIAN: Benedict Juarez EXAM DATE: 04/19/2019 ACCESSION NUMBER: [id number] EXAM DESCRIPTION: CHEST 2VIEW EXAMINATION: CHEST 2VIEW HISTORY: ORDER STATES COUGH, COPD, SOB; PT STATES "MUSCLE SPASMS" AFTER COUGHING THIS EVENING; HX OF COPD AND MULTIPLE STENT PLACEMENTS 5 YEARS AGO; (Hx) / Note time : 1 06/20/2018 10:17:39 PM User : Morena Espinosaomis ORDER STATES COUGH, COPD, SOB; PT STATES "MUSCLE SPASMS" AFTER COUGHING THIS E VENING; HX OF COPD AND MULTIPLE STENT PLACEMENTS 5 YEARS AGO; PRIOR CXR 03/05/18 (DICOM Hx) (DICOM Hx) COMPARISON: 03/05/2018 FINDINGS: There is no focal consolidation, pleural effusion, or pneumothorax. The cardiomediastinal silhouette is normal. The visible bony thorax is intact. IMPRESSION: No acute pulmonary process. Read by: Fercho Arias Transcribed by: Transcribed Date: Electronically signed by: Fercho Arias Date signed: 04/19/2019 10:23:42 PM
[2019-04-19] MEDS ORDERED: AZITHROMYCIN 250 MG TABLET PO ONE (22:28)
[2019-04-19] MEDS ORDERED: predniSONE 20 MG TABLET PO ONE (22:29)
[2019-04-19 22:50] VITALS: BP 120/69
== END 2019-04-19 22:43 | disposition home or self-care (01) ==
LOC: ED 21:18
DX: J44.1 Chronic obstructive pulmonary disease with (acute) exacerbation (principal); J40 Bronchitis, not specified as acute or chronic
CPT/HCPCS: 71046; 94640; 99283; 99284; J7626